=== PATIENT | female | born 1995 | race Caucasian/White ===

== ENCOUNTER → 2020-09-08 | Outpatient (CLI) | payer MEDICAID ==
--- NOTE | 2020-09-08 16:36 | Diagnostic Imaging Report ---
INDICATION: patient, survey. TECHNIQUE: Multiple real-time grayscale images were obtained over the gravid uterus. COMPARISON: None. FINDINGS: A single live intrauterine fetus is seen measuring 20 weeks 6 days by composite measurements with EDC of 01/20/2021. The fetus is in cephalic presentation at this time. Amniotic fluid was qualitatively normal. Placenta is posterior and shows no evidence of previa. heart rate is 142 bpm. Cervical length was 4.2 cm. The distance from the tip of the placenta to the internal os was 6.4 cm. Maternal adnexa were not well visualized. survey demonstrated normal-appearing kidneys and bladder. Normal-appearing stomach and four-chamber heart view are seen. Normal-appearing intracranial ventricles are seen. Three-vessel cord and cord insertion appear normal. Normal appearance of the spine was noted. Biometrical measurements are as follows: Biparietal 4.82 cm, age 20 weeks 5 days. Head circumference 18.30 cm, age 20 weeks 5 days. Abdominal circumference 15.46 cm, age 20 weeks 5 days. Femur length 3.47 cm, age 21 weeks 0 days. Sonographic estimate age: 20 weeks 6 days. Sonographic estimated date of delivery: 01/20/2021. Estimated Weight: 375 gm (+/- 55 gm). LMP percentile: 47%. heart rate: 142 beats per minute. number: 1 of 1. IMPRESSION: Single live intrauterine fetus is seen measuring 20 weeks 6 days by composite measurements, there is no detectable abnormality. Dictated by: Dictated on workstation # [id number]
== END ==
LOC: RAD 14:45
PROVIDERS: ATTEND Obstetrics & Gynecology
DX: Z34.92 Encounter for supervision of normal pregnancy, unspecified, second trimester (principal); Z3A.20 20 weeks gestation of pregnancy
CPT/HCPCS: 76805

== ENCOUNTER 2020-11-07 11:46 | Outpatient (CLI) | payer MEDICAID ==
[~2020-11-07] VITALS: Ht 175.3 cm; Wt 68.6 kg
[2020-11-07 12:32] LABS: BILIRUBIN,URINE NEGATIVE (NEGATIVE); CLARITY,URINE CLEAR; COLOR,URINE YELLOW; GLUCOSE, URINE (UA) NEGATIVE (NEGATIVE); KETONES,URINE NEGATIVE (NEGATIVE); LEUKOCYTE ESTERASE ,URINE 3+ (NEGATIVE); NITRITE,URINE NEGATIVE (NEGATIVE); PH,URINE 7.5 (5-9); PROTEIN,URINE NEGATIVE (NEGATIVE)
[2020-11-07] MEDS ORDERED: LEVO75CA5 PO (12:34)
[2020-11-07 12:36] VITALS: BP 109/63
[2020-11-07 12:45] LABS: BACTERIA,URINE FEW /HPF
[2020-11-07 14:07] LABS: BILIRUBIN,URINE NEGATIVE (NEGATIVE); CLARITY,URINE CLEAR; COLOR,URINE ORANGE; GLUCOSE, URINE (UA) NEGATIVE (NEGATIVE); KETONES,URINE 1+ (NEGATIVE); LEUKOCYTE ESTERASE ,URINE NEGATIVE (NEGATIVE); NITRITE,URINE NEGATIVE (NEGATIVE); PROTEIN,URINE NEGATIVE (NEGATIVE)
[2020-11-07 14:16] LABS: BACTERIA,URINE NEGATIVE /HPF; WBC,URINE 0-2 /HPF
[2020-11-07 14:32] LABS: BASOPHILS # (AUTO) 0.1 10^3/uL (0.0-0.1); BASOPHILS % (AUTO) 1 % (0-10); EOSINOPHILS # (AUTO) 0.1 10^3/uL (0.0-0.3); EOSINOPHILS % (AUTO) 1 % (0-10); HEMATOCRIT 33 % (35-52); HEMOGLOBIN 10.9 g/dL (11.5-16.0); LYMPHOCYTES # (AUTO) 1.5 10^3/uL (1.0-4.0); LYMPHOCYTES % (AUTO) 15 % (12-44); MEAN CORPUSCULAR HEMOGLOBIN 31 pg (25-34); MEAN CORPUSCULAR HGB CONC 33 g/dL (32-36); MEAN CORPUSCULAR VOLUME 93 fL (80-99); MEAN PLATELET VOLUME 9.1 fL (9.0-12.2); MONOCYTES # (AUTO) 0.6 10^3/uL (0.0-1.0); MONOCYTES % (AUTO) 6 % (0-12); NEUTROPHILS # (AUTO) 7.4 10^3/uL (1.8-7.8); NEUTROPHILS % (AUTO) 77 % (42-75); PLATELET COUNT 326 10^3/uL (130-400); WHITE BLOOD COUNT 9.7 10^3/uL (4.3-11.0)
[2020-11-07] MEDS ORDERED: oxyCODONE/APAP 5/325MG (PERCOCET 5) TABLET PO ONE (16:30)
[2020-11-07] MEDS ORDERED: oxyCODONE/APAP 5/325MG (PERCOCET 5) TABLET PO PRN (16:30)
[2020-11-07] MEDS ORDERED: oxyCODONE/APAP 5/325MG (PERCOCET 5) TABLET ONE (16:36)
--- NOTE | 2020-11-07 16:48 | Diagnostic Imaging Report ---
PROCEDURE: US Renal Bilateral. INDICATION: BACK PAIN, CHECK KIDNEYS AND URETERS TECHNIQUE: Multiple real-time grayscale sonographic images were obtained of the kidneys. CORRELATION: None FINDINGS: RIGHT KIDNEY: 10.2 x 5.0 x 4.7 cm. There is normal echotexture of the right renal parenchyma. No definitive calcification or hydronephrosis. LEFT KIDNEY: 9.6 x 4.7 x 4.8 cm. There is normal echotexture of the left renal parenchyma. No definitive calcification or hydronephrosis. URINARY BLADDER: Not imaged. Incidental note made of multiple shadowing gallstones. IMPRESSION: 1. Unremarkable renal sonogram. 2. Cholelithiasis. (Gallbladder and biliary tree incompletely evaluated.) Dictated by: Dictated on workstation # [id number]
--- NOTE | 2020-11-07 17:57 | Diagnostic Imaging Report ---
INDICATION: patient, back pain. TECHNIQUE: Multiple real-time grayscale images were obtained over the gravid uterus. COMPARISON: Prior study of 09/08/2020. FINDINGS: There is a single live intrauterine fetus measuring 29 weeks 1 day in size, with normal interval growth compared to the previous study. Fetus is in cephalic presentation. Amniotic fluid index is normal at 14.4 cm. Placenta is posterior with no evidence of previa. heart rate was 152 bpm. Cervical length is 5.6 cm. Full survey was not performed. Biometrical measurements are as follows: Biparietal 7.01 cm, age 28 weeks 2 days. Head circumference 26.84 cm, age 29 weeks 2 days. Abdominal circumference 25.20 cm, age 29 weeks 3 days. Femur length 5.50 cm, age 29 weeks 1 days. Sonographic estimate age: 29 weeks 1 days. Sonographic estimated date of delivery: 01/22/2021. Estimated Weight: 1348 gm (+/- 197 gm). LMP percentile: 33%. heart rate: 152 beats per minute. number: 1 of 1. IMPRESSION: Single live intrauterine fetus measuring 29 weeks 1 day in size with normal interval growth compared to the prior study. There is no detectable abnormality. Dictated by: Dictated on workstation # [id number]
--- NOTE | 2020-11-10 08:42 | Physician Query-Final Dx ---
KENIA GIFFORD 11/10/20 0842: Clinic Account Progress/Dx Physician Query: Please give diagnosis Please include # weeks gestation Date of Service Nov 07, 2020 at 11:46 MARYANN METZGER MD 11/10/20 1509: Clinic Account Progress/Dx DIAGNOSIS: Diagnosis False labor at 29 weeks gestation KENIA GIFFORD Nov 10, 2020 08:42 MARYANN METZGER MD Nov 10, 2020 15:09
== END 2020-11-07 18:50 | disposition home or self-care (01) ==
LOC: WSo 11:46 → LDRP 11:48 → WSo 18:50
PROVIDERS: ATTEND Obstetrics & Gynecology
DX: O26.893 Other specified pregnancy related conditions, third trimester (principal); M54.9 Dorsalgia, unspecified; Z3A.29 29 weeks gestation of pregnancy
CPT/HCPCS: 76770; 76805; 81000; 85025; 87088; G0463; 36415; 99214

== ENCOUNTER 2021-01-11 06:55 | Inpatient (IN) | payer MEDICAID ==
[2021-01-11] VITALS (26 sets, daily range): BP systolic 90–122; BP diastolic 50–75
[~2021-01-11] VITALS: Ht 177.8 cm; Wt 76.8 kg
[~2021-01-11 06:55] MED LIST: LEVO75CA5 PO
[2021-01-11] MEDS ORDERED: D5 LR IV SOLUTION 1,000 ML IV SCH (07:30)
[2021-01-11] MEDS ORDERED: LIDOCAINE/EPI 2% 1:200,00 (XYLOCAINE) 20 ML VIAL INJ PRN (07:30)
[2021-01-11] MEDS ORDERED: OXYTOCIN PRE-MIX DRIP 500 ML IV SCH (07:30)
[2021-01-11 07:38] LABS: BASOPHILS # (AUTO) 0.1 10^3/uL (0.0-0.1); BASOPHILS % (AUTO) 0 % (0-10); EOSINOPHILS # (AUTO) 0.1 10^3/uL (0.0-0.3); EOSINOPHILS % (AUTO) 1 % (0-10); HEMATOCRIT 34 % (35-52); HEMOGLOBIN 11.1 g/dL (11.5-16.0); LYMPHOCYTES # (AUTO) 1.6 10^3/uL (1.0-4.0); LYMPHOCYTES % (AUTO) 9 % (12-44); MEAN CORPUSCULAR HEMOGLOBIN 27 pg (25-34); MEAN CORPUSCULAR HGB CONC 33 g/dL (32-36); MEAN CORPUSCULAR VOLUME 84 fL (80-99); MEAN PLATELET VOLUME 9.2 fL (9.0-12.2); MONOCYTES # (AUTO) 1.4 10^3/uL (0.0-1.0); MONOCYTES % (AUTO) 7 % (0-12); NEUTROPHILS # (AUTO) 15.1 10^3/uL (1.8-7.8); NEUTROPHILS % (AUTO) 82 % (42-75); PLATELET COUNT 467 10^3/uL (130-400); WHITE BLOOD COUNT 18.3 10^3/uL (4.3-11.0)
[2021-01-11 07:39] LABS: BILIRUBIN,URINE NEGATIVE (NEGATIVE); CLARITY,URINE SL CLOUDY; COLOR,URINE YELLOW; GLUCOSE, URINE (UA) NEGATIVE (NEGATIVE); KETONES,URINE NEGATIVE (NEGATIVE); LEUKOCYTE ESTERASE ,URINE 1+ (NEGATIVE); NITRITE,URINE NEGATIVE (NEGATIVE); PROTEIN,URINE NEGATIVE (NEGATIVE)
[2021-01-11 07:47] LABS: BACTERIA,URINE NEGATIVE /HPF; RBC,URINE 0-2 /HPF
--- NOTE | 2021-01-11 08:08 | History & Physical-OB ---
OB - Chief Complaint & HPI Date/Time Date of Admission: Date of Admission: 01/11/21 Date seen by a Provider: Jan 11, 2021 Time Seen by a Provider: 08:08 Chief Complaint/History OB-Reason for Admission/Chief: Onset of Labor (01/10/21) Hx : 4 Hx Para: 1 Expected Date of Delivery: Jan 21, 2021 Gestational Age in Weeks: 38 Gestational Age in Days: 4 Allergies and Home Medications Allergies Coded Allergies: No Known Drug Allergies (Unverified , 11/07/20) Patient Home Medication List Home Medication List Reviewed: Yes Levothyroxine Sodium (Levothyroxine) 75 Mcg Capsule, 75 MCG PO DAILY, (Reported) Entered as Reported by: LUKAS ROSARIO on 11/07/20 6985 Last Action: Reviewed OB - History Hx of Present Care: Yes Ultrasounds: Normal mid trimester US Obstetrical Complications: None Medical Complications: Cardiovascular (Report myocardial bridge with equipment monitor phototypesetting) Information Induced Hypertension: No Maternal Gestational Diabetes: No Hemorrhage: No Patient Past Medical History Hypothyroidism Myocardial Bridge OB - Admission Exam Physical Exam HEENT: EOMI Heart: Rhythm Normal Lungs: Equal (symmetric chest rise, normal effort) Abdomen: Gravid Extremities: Normal Cervical Dilatation: 7cm Effacement: 75% Station: Other (bulging bag) Heart Rate: 140's Accelerations: Accelerations Present Decelerations: No Decelerations Short Term Variability: Present Physician Pediatrician Variability: Average (6-25) Contractions on Admission: < 5 Minutes Apart Date/Time Contractions Began;: 01/10/2021 Frequency of Contractions: q 2 min Labs Laboratory Tests Test 01/11/21 07:00 01/11/21 07:12 Range/Units Urine Color YELLOW Urine Clarity SL CLOUDY Urine pH 7.0 5-9 Urine Specific [place] 1.020 1.016-1.022 Urine Protein NEGATIVE NEGATIVE Urine Glucose (UA) NEGATIVE NEGATIVE Urine Ketones NEGATIVE NEGATIVE Urine Nitrite NEGATIVE NEGATIVE Urine Bilirubin NEGATIVE NEGATIVE Urine Urobilinogen 1.0 < = 1.0 MG/DL Urine Leukocyte Esterase 1+ H NEGATIVE Urine RBC (Auto) 1+ H NEGATIVE Urine RBC 0-2 /HPF Urine WBC 5-10 H /HPF Urine Squamous Epithelial Cells 10-25 H /HPF Urine Crystals NONE /LPF Urine Bacteria NEGATIVE /HPF Urine Casts NONE /LPF Urine Mucus NEGATIVE /LPF Urine Culture Indicated NO White Blood Count 18.3 H 4.3-11.0 10^3/uL Red Blood Count 4.05 3.80-5.11 10^6/uL Hemoglobin 11.1 L 11.5-16.0 g/dL Hematocrit 34 L 35-52 % Mean Corpuscular Volume 84 80-99 fL Mean Corpuscular Hemoglobin 27 25-34 pg Mean Corpuscular Hemoglobin Concent 33 32-36 g/dL Red Cell Distribution Width 14.6 H 10.0-14.5 % Platelet Count 467 H 130-400 10^3/uL Mean Platelet Volume 9.2 9.0-12.2 fL Immature Granulocyte % (Auto) 1 % Neutrophils (%) (Auto) 82 H 42-75 % Lymphocytes (%) (Auto) 9 L 12-44 % Monocytes (%) (Auto) 7 0-12 % Eosinophils (%) (Auto) 1 0-10 % Basophils (%) (Auto) 0 0-10 % Neutrophils # (Auto) 15.1 H 1.8-7.8 10^3/uL Lymphocytes # (Auto) 1.6 1.0-4.0 10^3/uL Monocytes # (Auto) 1.4 H 0.0-1.0 10^3/uL Eosinophils # (Auto) 0.1 0.0-0.3 10^3/uL Basophils # (Auto) 0.1 0.0-0.1 10^3/uL Immature Granulocyte # (Auto) 0.1 0.0-0.1 10^3/uL OB - Assessment/Plan/Diagnosis Assessment Assessment: active labor Admission Dx Term Labor Admission Status: Inpatient Order (span 2 midnights) Reason for Inpatient Admission: Term Labor Plan Plan: Expectant Management PACO ZULETA MD Jan 11, 2021 08:08
[2021-01-11] MEDS ORDERED: LIDOCAINE 1% INJ 20 ML 20 ML VIAL ONE (08:26)
[2021-01-11] MEDS ORDERED: fentaNYL INJ 100 MCG/2 ML AMP ONE (08:36)
[2021-01-11] MEDS ORDERED: NALOXONE 0.4 MG/ML 1 ML (NARCAN) VIAL IV PRN (10:30)
[2021-01-11] MEDS ORDERED: WITCH HAZEL(TUCKS) 40 EA JAR TOP PRN (10:30)
[2021-01-11] MEDS ORDERED: BENZOCAINE/MENTHOL (DERMOPLAST) 56 ML CAN TP PRN (10:30)
[2021-01-11] MEDS ORDERED: TETANUS,DIPTH,PERTUSS P/F (BOOSTRIX) 0.5 ML VIAL IM ONE (10:30)
[2021-01-11] MEDS ORDERED: CALCIUM CARBONATE 500 MG (TUMS) TAB.CHEW PO PRN (10:30)
[2021-01-11] MEDS ORDERED: DIBUCAINE 1% OINTMENT 30 GM TUBE TOP PRN (10:30)
[2021-01-11] MEDS ORDERED: MEASLES,MUMPS,RUBELLA 1 EA INJ SQ ONE (10:30)
[2021-01-11] MEDS ORDERED: ONDANSETRON 4 MG (ZOFRAN) ORAL DISSOLVE TAB PO PRN (10:30)
--- NOTE | 2021-01-11 10:35 | OB Labor & Delivery Record ---
Vag Delivery Note Vag Delivery Note Date of Delivery: 01/11/21 Preoperative Diagnosis: Yumi Shearer is a (25 /Para 4 / 1,Gestational Age (wks)38w4d with term labor - Term labor Postoperative Diagnosis: Same Surgeon: PACO ZULETA Anesthesia: Epidural Delivery Type: Spontaneous vaginal delivery Findings: Living female , apgars 8/9 at 1 and 5 minutes respectively Lacerations: first degree perineal Intact placenta with 3 vessel cord. No nuchal cord, body cord or shoulder dystocia Estimated Blood Loss: 150 ml Complications: None Condition: Stable Description of Procedure: The patient is a 25 year old female who presented to labor and delivery for contractions. Cervical exam on presentation was 6cm dilation, and 90% effacement. She was admitted for labor, and informed consent was obtained. Her labor course was remarkable for spontaneous rupture of membranes. She received an epidural. She progressed to complete dilatation and began to push. She was then set up for delivery. The 's head was delivered atraumatically in the ZELDA position. The shoulders and remainder of the 's body were then delivered without difficulty. Upon delivery, cord clamping was delayed for 30s, and the cord was doubly clamped and cut and the was placed on the patient's chest with the nurse presents for assessment and evaluation. An intact placenta with 3-vessel cord delivered and there was found to be minimal bleeding. Fundal massage was performed and the fundus was found to be firm. IV oxytocin was given. Examination of the vagina and perineum revealed a very first degree laceration that was hemostatic. Following the repair, sponge, instrument and needle counts were correct. Mom and baby were both in stable condition in the labor suite. Vitals - Labs Labs Laboratory Tests 01/11/21 07:00: Urine Color YELLOW, Urine Clarity SL CLOUDY, Urine pH 7.0, Urine Specific [place] 1.020, Urine Protein NEGATIVE, Urine Glucose (UA) NEGATIVE, Urine Ketones NEGATIVE, Urine Nitrite NEGATIVE, Urine Bilirubin NEGATIVE, Urine Urobilinogen 1.0, Urine Leukocyte Esterase 1+H, Urine RBC (Auto) 1+H, Urine RBC 0-2, Urine WBC 5-10H, Urine Squamous Epithelial Cells 10-25H, Urine Crystals NONE, Urine Bacteria NEGATIVE, Urine Casts NONE, Urine Mucus NEGATIVE, Urine Culture Indicated NO 01/11/21 07:12: White Blood Count 18.3H, Red Blood Count 4.05, Hemoglobin 11.1L, Hematocrit 34L, Mean Corpuscular Volume 84, Mean Corpuscular Hemoglobin 27, Mean Corpuscular Hemoglobin Concent 33, Red Cell Distribution Width 14.6H, Platelet Count 467H, Mean Platelet Volume 9.2, Immature Granulocyte % (Auto) 1, Neutrophils (%) (Auto) 82H, Lymphocytes (%) (Auto) 9L, Monocytes (%) (Auto) 7, Eosinophils (%) (Auto) 1, Basophils (%) (Auto) 0, Neutrophils # (Auto) 15.1H, Lymphocytes # (Auto) 1.6, Monocytes # (Auto) 1.4H, Eosinophils # (Auto) 0.1, Basophils # (Auto) 0.1, Immature Granulocyte # (Auto) 0.1 PACO ZULETA MD Jan 11, 2021 10:35
[2021-01-11] MEDS: OXYTOCIN PRE-MIX DRIP 500 ML IV SCH (10:53)
[2021-01-11] MEDS ORDERED: LEVOTHYROXINE 75 MCG (LEVOTHROID) TABLET PO NR (12:30)
[2021-01-11] MEDS ORDERED: CATHETER FLUSH 10 ML SYR IV SCH (14:00)
[2021-01-11] MEDS: IBUPROFEN 600 MG (MOTRIN) TAB PO SCH ×2 (14:58→20:22)
[2021-01-11] MEDS: CATHETER FLUSH 10 ML SYR IV SCH (15:07)
[2021-01-11] MEDS: ACETAMINOPHEN 500 MG TAB (TYLENOL) PO SCH (18:27)
[2021-01-11] MEDS: DOCUSATE SODIUM 100 MG (COLACE) CAP PO SCH (20:22)
[2021-01-12] MEDS: ACETAMINOPHEN 500 MG TAB (TYLENOL) PO SCH ×2 (00:25→06:04)
[2021-01-12] MEDS: IBUPROFEN 600 MG (MOTRIN) TAB PO SCH ×2 (02:25→09:20)
[2021-01-12] MEDS: CATHETER FLUSH 10 ML SYR IV SCH (06:09)
[2021-01-12 06:25] LABS: BASOPHILS # (AUTO) 0.1 10^3/uL (0.0-0.1); BASOPHILS % (AUTO) 0 % (0-10); EOSINOPHILS # (AUTO) 0.1 10^3/uL (0.0-0.3); EOSINOPHILS % (AUTO) 1 % (0-10); HEMATOCRIT 37 % (35-52); HEMOGLOBIN 11.8 g/dL (11.5-16.0); LYMPHOCYTES # (AUTO) 2.2 10^3/uL (1.0-4.0); LYMPHOCYTES % (AUTO) 10 % (12-44); MEAN CORPUSCULAR HEMOGLOBIN 27 pg (25-34); MEAN CORPUSCULAR HGB CONC 32 g/dL (32-36); MEAN CORPUSCULAR VOLUME 86 fL (80-99); MEAN PLATELET VOLUME 9.8 fL (9.0-12.2); MONOCYTES # (AUTO) 1.5 10^3/uL (0.0-1.0); MONOCYTES % (AUTO) 7 % (0-12); NEUTROPHILS # (AUTO) 17.6 10^3/uL (1.8-7.8); NEUTROPHILS % (AUTO) 81 % (42-75); PLATELET COUNT 499 10^3/uL (130-400); WHITE BLOOD COUNT 21.7 10^3/uL (4.3-11.0)
[2021-01-12] MEDS ORDERED: LEVOTHYROXINE 75 MCG (LEVOTHROID) TABLET PO SCH (06:30)
[2021-01-12] MEDS ORDERED: PRENATAL VITAMIN 1 EA TAB PO SCH (07:00)
--- NOTE | 2021-01-12 08:43 | Postpartum Progress Note ---
Note Note Day # 1 s/p Subjective: Patient is without complaints. Ambulating, voiding. Tolerating a regular diet without nausea or vomiting. Normal lochia. Pain is well controlled with oral pain medications. [] feeding. [] Objective: Laboratory Tests Test 01/12/21 05:35 Range/Units White Blood Count 21.7 H 4.3-11.0 10^3/uL Red Blood Count 4.37 3.80-5.11 10^6/uL Hemoglobin 11.8 11.5-16.0 g/dL Hematocrit 37 35-52 % Mean Corpuscular Volume 86 80-99 fL Mean Corpuscular Hemoglobin 27 25-34 pg Mean Corpuscular Hemoglobin Concent 32 32-36 g/dL Red Cell Distribution Width 14.9 H 10.0-14.5 % Platelet Count 499 H 130-400 10^3/uL Mean Platelet Volume 9.8 9.0-12.2 fL Immature Granulocyte % (Auto) 1 % Neutrophils (%) (Auto) 81 H 42-75 % Lymphocytes (%) (Auto) 10 L 12-44 % Monocytes (%) (Auto) 7 0-12 % Eosinophils (%) (Auto) 1 0-10 % Basophils (%) (Auto) 0 0-10 % Neutrophils # (Auto) 17.6 H 1.8-7.8 10^3/uL Lymphocytes # (Auto) 2.2 1.0-4.0 10^3/uL Monocytes # (Auto) 1.5 H 0.0-1.0 10^3/uL Eosinophils # (Auto) 0.1 0.0-0.3 10^3/uL Basophils # (Auto) 0.1 0.0-0.1 10^3/uL Immature Granulocyte # (Auto) 0.1 0.0-0.1 10^3/uL 01/11/21 23:38 Temp 36.8 Pulse 72 Resp 16 B/P (MAP) 102/56 (71) Pulse Ox 98 O2 Delivery Room Air 01/12/21 00:00 Intake Total 1000 ml Balance 1000 ml Physical Exam: General - Alert and oriented, no apparent distress Abdomen - Soft, appropriately tender to palpation, non-distended, fundus firm at umbilicus Extremities - no edema, negative Danielle's bilaterally [] Assessment: 1 post- day # 1, status post spontaneous vaginal delivery. Recovering well, hemodynamically stable [] Plan: Routine care. Encourage breast feeding. Encourage ambulation. Ferrous sulfate supplementation. Plan for discharge [] Vitals - Labs Vital Signs - I&O Vital Signs Date Time Temp Pulse Resp B/P (MAP) Pulse Ox O2 Delivery O2 Flow Rate FiO2 01/11/21 23:38 36.8 72 16 102/56 (71) 98 Room Air 01/11/21 20:24 36.4 76 16 115/58 (77) 97 Room Air 01/11/21 16:09 36.9 109 18 100/58 (72) 97 Room Air 01/11/21 13:17 37.3 01/11/21 13:12 83 18 113/62 (79) Room Air 01/11/21 12:57 80 18 110/57 (74) Room Air 01/11/21 12:42 80 18 111/57 (75) Room Air 01/11/21 12:27 80 18 105/56 (72) Room Air 01/11/21 12:12 84 18 108/61 (77) Room Air 01/11/21 11:57 88 18 104/55 (71) Room Air 01/11/21 11:42 83 18 104/56 (72) Room Air 01/11/21 11:27 88 18 108/55 (72) Room Air 01/11/21 11:12 80 18 103/59 (74) Room Air 01/11/21 10:57 37.5 80 18 109/59 (76) Room Air 01/11/21 10:42 90 18 103/50 (67) Room Air 01/11/21 10:30 37.4 90 18 100/55 (70) Room Air 01/11/21 10:15 97 18 99/55 (70) Room Air 01/11/21 10:10 01/11/21 10:00 96 18 95/50 (65) 99 Room Air 01/11/21 09:45 83 18 101/57 (72) 98 Room Air 01/11/21 09:30 36.9 84 18 102/59 (73) 99 Room Air 01/11/21 09:15 101 18 90/53 (65) 97 Room Air 01/11/21 09:00 111 18 90/54 (66) 99 Room Air 01/11/21 08:45 79 18 111/61 (78) 100 Room Air 01/11/21 08:45 36.7 90 18 111/67 (82) 100 Room Air 01/11/21 08:43 87 18 122/71 (88) 100 Room Air I & O 01/12/21 07:00 Intake Total 1250 ml Balance 1250 ml Labs Laboratory Tests 01/12/21 05:35: White Blood Count 21.7H, Red Blood Count 4.37, Hemoglobin 11.8, Hematocrit 37, Mean Corpuscular Volume 86, Mean Corpuscular Hemoglobin 27, Mean Corpuscular Hemoglobin Concent 32, Red Cell Distribution Width 14.9H, Platelet Count 499H, Mean Platelet Volume 9.8, Immature Granulocyte % (Auto) 1, Neutrophils (%) (Auto) 81H, Lymphocytes (%) (Auto) 10L, Monocytes (%) (Auto) 7, Eosinophils (%) (Auto) 1, Basophils (%) (Auto) 0, Neutrophils # (Auto) 17.6H, Lymphocytes # (Auto) 2.2, Monocytes # (Auto) 1.5H, Eosinophils # (Auto) 0.1, Basophils # (Auto) 0.1, Immature Granulocyte # (Auto) 0.1 PERLA LO DO Jan 12, 2021 08:43
[2021-01-12] MEDS ORDERED: ACET-93 PO (08:44)
[2021-01-12] MEDS ORDERED: IBUP-844 PO (08:44)
--- NOTE | 2021-01-12 08:45 | Discharge Inst-Women's Service ---
Discharge Inst-Women's Serv Depart Medication/Instructions New, Converted or Re-Newed RX: Transmitted to Pharmacy Final Diagnosis vaginal delivery hypothyroidism Problems Reviewed?: Yes Consults/Follow Up Additional Follow Up: Yes (6 week pp exam) Activity Activity: Activity as Tolerated Driving Instructions: You May Drive NO SMOKING: NO SMOKING Nothing Inside Vagina: No Douching, No [place], No Tampons Diet Discharge Diet: No Restrictions Symptoms to Report to : Swelling Increased, Bleeding Excessive, Pain Increased, Fever Over 101 Degrees F, Vaginal Bleeding Increase, Cramps in Feet or Legs, Vaginal Discharge Foul For Any Problems or Questions: Contact Your Physician PERLA LO DO Jan 12, 2021 08:45
[2021-01-12] MEDS ORDERED: FERROUS SULF 325 MG (IRON) TAB PO SCH (09:00)
[2021-01-12] MEDS: DOCUSATE SODIUM 100 MG (COLACE) CAP PO SCH (09:20)
[2021-01-12 09:22] VITALS: BP 117/57
--- NOTE | 2021-01-12 09:33 | Anesthesia-Regional Post-Op ---
Regional Patient Condition Mental Status: Alert, Oriented x3 Circulation: Same as Pre-Op Headache: Absent Sensation: Full Recovery Motor Block: Absent Post Op Complications Complications None Follow Up Care/Instructions Patient Instructions None needed. Anesthesia/Patient Condition Patient is doing well, no complaints, stable vital signs, no apparent adverse anesthesia problems. No complications reported per nursing. D/C home per [facility] Criteria: Yes JOVANNI QUINTANA CRNA Jan 12, 2021 09:33
== END 2021-01-12 13:20 | disposition home or self-care (01) | DRG 806 ==
LOC: WSo 06:55 → LDRP 06:56 → WSo 06:57 → LDRP 06:58
PROVIDERS: ADMIT Obstetrics & Gynecology; ATTEND Obstetrics & Gynecology
PROC: 10E0XZZ Delivery of Products of Conception, External Approach (ICD-10-PCS; principal; 2021-01-11)
PROC: 0HQ9XZZ Repair Perineum Skin, External Approach (ICD-10-PCS; 2021-01-11)
DX: O99.284 Endocrine, nutritional and metabolic diseases complicating childbirth (principal); Q24.5 Malformation of coronary vessels; Z37.0 Single live birth; E03.9 Hypothyroidism, unspecified; Z3A.38 38 weeks gestation of pregnancy; O70.0 First degree perineal laceration during delivery
CPT/HCPCS: 36415; 81000; 85025; 86850; 86900; 86901; 99212